=== PATIENT | male | born 1955 | race Caucasian/White ===

== ENCOUNTER → 2018-08-29 | Outpatient (REF) | payer OTHER | LOC: M SMT 16:59 | PROVIDERS: ATTEND Nurse Practitioner Family | DX: R97.20 Elevated prostate specific antigen [PSA] (principal) ==

== ENCOUNTER → 2018-09-23 | Outpatient (CLI) | payer OTHER ==
--- NOTE | 2018-09-23 14:23 | REP ---
Prostate sonography: History: Elevated PSA. Sonographic findings: Trans rectal prostate sonography demonstrates unremarkable seminal vesicles. Prostate gland is heterogeneously enlarged with calcifications and cystic changes noted. Glandular dimensions are measured at 4.5 x 5.3 x 3.0 cm with a calculated glandular volume of 38.3 ml. The mid base cyst measuring 1.2 cm in greatest diameter. Transrectal sonographic guidance is provided to Dr. Walls who performed trans rectal ultrasound guided needle biopsy procedure . Electronically Signed by Tae Mohr MD 09/23/2018 02:14 P
== END ==
LOC: M SMT PRO 10:22
PROVIDERS: ATTEND Urology
DX: C61 Malignant neoplasm of prostate (principal)
CPT/HCPCS: 76872; 76942; G0416

== ENCOUNTER → 2020-03-01 | Outpatient (CLI) | payer OTHER ==
--- NOTE | 2020-03-04 05:24 | REPPI ---
INDICATION: ELEVATED PSA Elevated prostate specific antigen levels. COMPARISON: None. TECHNIQUE: Transrectal ultrasound examination. FINDINGS: Examination demonstrates heterogeneous gland with scattered calcifications. Gland measures 4.4 x 2.7 x 5.3 cm (33 ml). Ultrasound-guided Biopsy performed by Dr. Walls included 14 passes with 18 gauge needle after the administration of local anesthetic. No obvious complications during examination as reported by cable splicer. IMPRESSION: 1. Heterogeneous prostate gland. 2. Status post biopsy. <Electronically signed by Petros Blair > 03/04/20 [id number]
== END ==
LOC: M SMT PRO 08:19
PROVIDERS: ATTEND Urology
DX: C61 Malignant neoplasm of prostate (principal)
CPT/HCPCS: 76942; G0416

== ENCOUNTER 2020-07-05 08:46 | Inpatient (IN) | payer OTHER ==
[~2020-07-05] VITALS: Ht 182.9 cm; Wt 79.0 kg
[~2020-07-05 08:46] MED LIST: ASPI81CH33 PO; ATOR40TA75 PO; AUGM0.05 EXT; HEPARIN SOD (PORCINE) 5000UNITS/ML 1ML VIAL/SYRINGE SQ ONE; LR 1,000 ML IV ONE; TACR0.1O EX; ceFAZolin SOD 2 GM in IV 1 EA IV ONE
[2020-07-05] MEDS ORDERED: BUPIVACAINE HCL 0.25% 30ML VIAL As Ordered ONE (12:19)
[2020-07-05] MEDS ORDERED: LIDOCAINE 1% SDV 30ML VIAL As Ordered ONE (12:19)
[2020-07-05] MEDS ORDERED: NS 1,000 ML IV SCH (13:49)
[2020-07-05] MEDS ORDERED: ACETAMINOPHEN TAB 650MG DOSE (2X325MG) PO PRN (13:50)
[2020-07-05] MEDS ORDERED: MORPHINE 2 MG/ML 1ML VIAL (J2270) IV PRN (13:50)
[2020-07-05] MEDS ORDERED: PERCOCET 5MG/325MG TAB PO PRN ×3 (13:50→19:10)
[2020-07-05] MEDS ORDERED: ONDANSETRON 4MG/2ML VIAL IV PRN ×2 (13:50→19:10)
[2020-07-05] MEDS ORDERED: LIDOCAINE 2% 100MG/5ML SDV (FOR ANES.) As Ordered ONE (13:57)
[2020-07-05] MEDS ORDERED: ROCURONIUM BROMIDE 50 MG/5 ML VIAL As Ordered ONE ×2 (13:57→13:59)
[2020-07-05] MEDS ORDERED: propofoL 200 MG/20 ML VIAL As Ordered ONE (13:57)
[2020-07-05] MEDS ORDERED: fentaNYL 100 MCG/2 ML INJECTION (J3010) As Ordered ONE (13:57)
[2020-07-05] MEDS ORDERED: ONDANSETRON 4MG/2ML VIAL As Ordered ONE (13:57)
[2020-07-05] MEDS ORDERED: MIDAZOLAM INJ 2MG/2ML VIAL (J2250 PER 1MG) As Ordered ONE (13:57)
[2020-07-05] MEDS ORDERED: HYDROmorphone HCL 2 MG/ML 1ML VIAL (J1170) As Ordered ONE (13:57)
[2020-07-05] MEDS ORDERED: dexameTHASONE 4 MG/ML 1ML VIAL (J1100 PER 1MG) As Ordered ONE (13:57)
[2020-07-05] MEDS ORDERED: SUGAMMADEX SODIUM 500 MG/5 ML VIAL (BRIDION) As Ordered ONE (16:22)
[2020-07-05] MEDS ORDERED: ACETAMINOPHEN 1000MG 100ML IV BTL (OFIRMEV) (J0131 PER 10MG) As Ordered ONE (16:23)
--- NOTE | 2020-07-05 19:03 | ROOPDOC ---
[facility] Report Of Operation Report of Operation DATE OF PROCEDURE: 07/05/20 PREPROCEDURE DIAGNOSIS: Prostate cancer. POSTPROCEDURE DIAGNOSIS: Prostate cancer. PROCEDURE: Robotic-assisted laparoscopic radical prostatectomy with bilateral pelvic lymph node dissection. SURGEON: Evonne Toth MD [employer]: Lisa Leon NP ANESTHESIA: General. OPERATIVE INDICATIONS: This is a 65 year old male with clinical T1c [place] 3+4 prostate cancer. After a discussion of the options for treatment, he elected to undergo the above procedure. DESCRIPTION OF PROCEDURE: The patient was brought to the operating room and general anesthesia was induced. Prophylactic antibiotics were infused. He was then placed in the supine position and prepped and draped in the usual sterile fashion. At this point, a Sanderson catheter was inserted into the bladder and the balloon was filled with 10 mL of sterile water. We then made a midline incision just above the umbilicus for an 8 mm port. A Veress needle was utilized to achieve pneumoperitoneum. Next, an 8 mm port was inserted into the incision and subsequently a camera was inserted. There were no injuries from the Veress needle or initial trocar placement. At this point, we placed the remaining ports, including a 12 mm assistant womens volleyball coach port and then three robotic ports in the usual configuration. Once all the ports we re placed, the robot was docked. Lysis of adhesions between the sigmoid colon and abdominal wall was then performed. The bladder was then released from the anterior abdominal wall using electrocautery. Once the bladder was dropped, the fat overlying the prostate was cleared using electrocautery. The superficial dorsal vein was controlled with electrocautery. The endopelvic fascia was opened on both sides and the dorsal venous complex was cleared. Next, a #0 Vicryl [id number] stitch was placed around the dorsal venous complex. Once that was done, the bladder was opened and dissected away from the prostate. At this point, the prostate was lifted up. I had difficulty dissecting the vasa deferentia. I was able to identify and dissect the right vas deferens. It was ligated and transected. The right seminal vesicle was also dissected off. The rectum was safely mobilized away from the prostate. The right neurovascular bundle was dissected off of the prostate using cold scissors. Bilateral prosta tic pedicles were taken using the Harmonic scalpel. The pedicles were carried towards the apex. After taking care of the pedicles and mobilizing the rectum off the prostate below, the prostate was only connected by the urethra. At this point, the dorsal venous complex was transected with electrocautery. The urethra was then opened and the catheter was withdrawn and the posterior urethra was transected, thus freeing the prostate. At this point, we checked for hemostasis and it did appear very good. Next, we performed bilateral pelvic lymph node dissection. This was done in a standard fashion. The limits of dissection were the iliac vein proximally, the obturator nerve distally, the pelvic sidewall laterally, and the bladder medially. All lymphatic tissue within these limits was removed. I performed the same procedure on both the right and left sides. Hemostasis was then obtained with bipolar electrocautery. The lymphatic packets were then placed in separate Endo Catch bags for future retrieval. Once hemostasis was confirmed, I then moved on to perform the vesicourethral anastomosis. This was performed with a Quill stitch in a running fashion. Once this was done, the final #20-Macedonian Sanderson catheter was placed. The balloon was filled with 15 mL of sterile water. Upon completion of the vesicourethral anastomosis, it was tested by filling the bladder with sterile saline water. The anastomosis appeared to be watertight. At this point, the prostate and right seminal vesicle were placed in an Endo Catch bag for future retrieval. The robot was then undocked. A Robert fascial closure device was utilized to place a #0 Vicryl suture between the fascia of the 12 mm assistant womens volleyball coach port. At this point, a Dexter- Tierney drain was brought in through the left robotic port skin site and the drain was positioned anterior to the bladder. The drain was secured to the skin with #2-0 Ethilon suture. Next, all the remaining ports were removed and there did not appear to be any bleeding from any of the port sites. The prostate, as well as the lymphatic packets were then extracted from the camera port site after the skin was extended. The fascia in this incision was then closed with a running #0 Vicryl stitch. The previously placed #0 Vicryl free ties through the assista nt port were then tied down and all incisions were irrigated. Last, all of the incisions were closed with running subcuticular #4-0 Monocryl sutures. Local anesthesia was applied. Dermabond was then applied to the incisions. This marked the conclusion of the procedure. The patient was then awakened from anesthesia and transported to the recovery room in stable condition. ESTIMATED BLOOD LOSS: 100 mL. COMPLICATIONS: None. SPECIMENS: Prostate and right seminal vesicle, right pelvic lymph nodes, left pelvic lymph nodes. PLAN: The patient will be admitted to the hospital postoperatively, and he will likely be discharged home within the next 1-2 days. EVONNE TOTH MD Jul 05, 2020 19:03
[2020-07-05] MEDS ORDERED: MEPERIDINE INJ 25 MG/ML VIAL (J2175) As Ordered ONE (19:07)
[2020-07-05] MEDS ORDERED: LR 1,000 ML IV SCH (19:10)
[2020-07-05] MEDS ORDERED: METOCLOPRAMIDE INJ 10MG/2ML VIAL (J2765 PER 1) IV PRN (19:10)
[2020-07-05] MEDS ORDERED: MEPERIDINE INJ 25 MG/ML VIAL (J2175) IV PRN (19:15)
[2020-07-05] MEDS: fentaNYL 100 MCG/2 ML INJECTION (J3010) IV PRN ×2 (19:41→19:45)
[2020-07-05] MEDS ORDERED: oxyCODONE 5MG TAB PO PRN (19:50)
[2020-07-05 20:24] LABS: HEMOGLOBIN 13.8 g/dl (13.5-17.5); MEAN CORPUSCULAR HEMOGLOBIN 29.7 pg (27.0-33.0); MEAN CORPUSCULAR HGB CONC 32.1 g/dl (32.0-36.5); MEAN CORPUSCULAR VOLUME 92.7 fl (80.0-96.0); PLATELET COUNT, AUTOMATED 194 10^3/uL (150-450); RED BLOOD COUNT 4.64 10^6/uL (4.30-6.10); WHITE BLOOD COUNT 13.2 10^3/uL (4.0-10.0)
[2020-07-05 20:45] VITALS: BP 119/66
[2020-07-05 20:45] LABS: CALCIUM LEVEL 8.6 MG/DL (8.8-10.2); CREATININE FOR GFR 1.32 MG/DL (0.70-1.30); GLOMERULAR FILTRATION RATE 57.8 (>49); POTASSIUM SERUM 5.1 MEQ/L (3.5-5.1)
[2020-07-05] MEDS ORDERED: ATORVASTATIN 20 MG TAB PO SCH (21:00)
[2020-07-05 21:15] VITALS: BP 116/65
[2020-07-05] MEDS: ceFAZolin SOD 1 GM in D5W MINI-BAG PLUS 50 ML IV SCH (21:25)
[2020-07-05] MEDS: DOCUSATE SODIUM 100MG CAPSULE PO SCH (21:25)
[2020-07-05] MEDS: HEPARIN SOD (PORCINE) 5000UNITS/ML 1ML VIAL/SYRINGE SC SCH (21:33)
[2020-07-05 22:00] VITALS: BP 110/61
[2020-07-05 23:00] VITALS: BP 107/59
[2020-07-06] VITALS: BP 106/59
[2020-07-06 01:00] VITALS: BP 106/59
[2020-07-06] MEDS ORDERED: PERCOCET 5MG/325MG TAB As Ordered ONE (01:41)
[2020-07-06] MEDS: HEPARIN SOD (PORCINE) 5000UNITS/ML 1ML VIAL/SYRINGE SC SCH ×2 (05:12→14:00)
[2020-07-06] MEDS: ceFAZolin SOD 1 GM in D5W MINI-BAG PLUS 50 ML IV SCH (05:12)
[2020-07-06 06:00] VITALS: BP 108/56
[2020-07-06 07:15] LABS: HEMATOCRIT 38.4 % (42.0-52.0); HEMOGLOBIN 12.6 g/dl (13.5-17.5); MEAN CORPUSCULAR HEMOGLOBIN 29.6 pg (27.0-33.0); MEAN CORPUSCULAR HGB CONC 32.8 g/dl (32.0-36.5); MEAN CORPUSCULAR VOLUME 90.1 fl (80.0-96.0); PLATELET COUNT, AUTOMATED 195 10^3/uL (150-450); RED BLOOD COUNT 4.26 10^6/uL (4.30-6.10); WHITE BLOOD COUNT 8.4 10^3/uL (4.0-10.0)
[2020-07-06 07:36] LABS: BLOOD UREA NITROGEN 19 MG/DL (7-18); CALCIUM LEVEL 8.2 MG/DL (8.8-10.2); CARBON DIOXIDE LEVEL 26 MEQ/L (21-32); CHLORIDE LEVEL 109 MEQ/L (98-107); CREATININE FOR GFR 1.01 MG/DL (0.70-1.30); GLOMERULAR FILTRATION RATE > 60.0 (>49); GLUCOSE, FASTING 90 MG/DL (70-100); POTASSIUM SERUM 4.1 MEQ/L (3.5-5.1); SODIUM LEVEL 140 MEQ/L (136-145)
[2020-07-06] MEDS: DOCUSATE SODIUM 100MG CAPSULE PO SCH (09:56)
[2020-07-06 10:00] VITALS: BP 111/62
--- NOTE | 2020-07-06 10:27 | IPNPDOC ---
Subjective Review oF Systems Chief Complaint The patient is a 65-year-old male admitted with a reason for visit of Prostate Cancer. Events since Last Encounter No acute events o/n. Good pain control. No n/v. Has not ambulated yet. No f/c/ns. Objective Physical Examination General Exam: Alert, Cooperative, No Acute Distress ABDOMEN EXAM: Soft, Tenderness (minimal), Other (incisions clean/dry/intact; RISA w/ serosanguinous output) Skin Exam: Nl turgor and temperature Neuro Exam: Normal Speech Psych Exam: Mental status NL, Mood NL Other physical findings catheter draining clear urine Vital Signs/I&O Vital Signs Date Time Temp Pulse Resp B/P (MAP) Pulse Ox O2 Delivery O2 Flow Rate FiO2 07/06/20 10:01 92 Room Air 07/06/20 09:57 20 07/06/20 06:00 97.9 70 108/56 (73) 2.0 I&O- Last 24 Hours up to 6 AM 07/06/20 06:00 Intake Total 2440 ml Output Total 1285 ml Balance 1155 ml Laboratory Data Labs 24H Laboratory Tests 2 07/05/20 19:50: Nucleated Red Blood Cells % (auto) 0.0, Anion Gap 8, Glomerular Filtration Rate 57.8, Calcium Level 8.6L 07/06/20 06:54: Nucleated Red Blood Cells % (auto) 0.0, Anion Gap 5L, Glomerular Filtration Rate > 60.0, Calcium Level 8.2L CBC/BMP Laboratory Tests 07/05/20 19:50 07/06/20 06:54 Assessment/Plan Date Seen The patient was seen on 07/06/20. Patient Summary This is a 65 y/o M POD1 s/p RALP w/ BPLND. He is doing well. Good UOP. Normal RISA output. Plan/VTE VTE Prophylaxis Ordered?: Yes VTE Exclusion Mechanical Proph: N/A:VTE Prophy Ordered VTE Exclusion Pharmacological: N/A:VTE Prophy Ordered Plan/Urinary Catheter Urinary Catheter: Other Catheter: (catheter will need to stay in for at least 7 days) Plan - d/c IVF - percocet prn pain - strict I/Os - ambulate - SCDs in bed - SQH - incentive spirometry - advance diet as tolerated - likely discharge home later today w/ catheter EVONNE TOTH MD Jul 06, 2020 10:27
[2020-07-06 14:00] VITALS: BP 110/64
[2020-07-06] MEDS ORDERED: DOK1CAP7 PO (14:58)
[2020-07-06] MEDS ORDERED: CIPR-249 PO (14:58)
[2020-07-06] MEDS ORDERED: PERCOCET PO (14:58)
--- NOTE | 2020-07-07 11:00 | DSES ---
DISCHARGE SUMMARY DATE OF ADMISSION: 07/05/2020 DATE OF DISCHARGE: 07/06/2020 ADMISSION DIAGNOSIS: Prostate cancer. DISCHARGE DIAGNOSIS: Prostate cancer. ADMITTING PHYSICIAN: Jamie Walls MD DISCHARGE PHYSICIAN: Jamie Walls MD PROCEDURE PERFORMED: Robotic-assisted laparoscopic radical prostatectomy with bilateral pelvic lymph node dissection on July 05, 2020. HISTORY OF PRESENT ILLNESS: This is a 65-year-old male who underwent the above-listed procedure for treatment of prostate cancer. He was admitted to the hospital postoperatively. HOSPITALIZATION COURSE: The patient underwent a robotic radical prostatectomy with pelvic lymph node dissection and was admitted to the hospital postoperatively on July 05, 2020. His postoperative course was unremarkable. On postoperative day one all of his lab work was within normal limits. He started ambulating on postoperative day one and did this very well. His diet was advanced and he tolerated a regular diet without nausea or vomiting. His pain was well controlled with oral pain medication. He had excellent urine output through his Sanderson catheter and minimal output from his Dexter-Tierney drain. By the afternoon of by mouth day one, he was deemed ready for discharge home. His Dexter-Tierney drain was removed and he was discharged home w his catheter in place. He will follow up in the Urology Clinic in approximately one week for catheter removal and to discuss pathology results.
== END 2020-07-06 17:00 | disposition home or self-care (01) | DRG 708 ==
LOC: M OR 11:17 → M MSPAV 20:44
PROVIDERS: ADMIT Urology; ATTEND Urology
PROC: 07TC4ZZ Resection of Pelvis Lymphatic, Percutaneous Endoscopic Approach (ICD-10-PCS; 2020-07-05)
PROC: 8E0W4CZ Robotic Assisted Procedure of Trunk Region, Percutaneous Endoscopic Approach (ICD-10-PCS; 2020-07-05)
PROC: 0VT04ZZ Resection of Prostate, Percutaneous Endoscopic Approach (ICD-10-PCS; principal; 2020-07-05 13:10)
DX: C61 Malignant neoplasm of prostate (principal); E78.5 Hyperlipidemia, unspecified; F17.210 Nicotine dependence, cigarettes, uncomplicated; Z86.010 Personal history of colon polyps; Z79.82 Long term (current) use of aspirin; Z79.899 Other long term (current) drug therapy